=== PATIENT | female | born 1980 | race Caucasian/White ===

== ENCOUNTER → 2017-03-03 08:56 | Outpatient (CLI) | payer MEDICAID ==
[2017-03-03 09:54] LABS: ALBUMIN 3.3 g/dL (3.4-5.0); BILIRUBIN - DIRECT 0.06 mg/dL (0.00-0.30); BILIRUBIN - INDIRECT 0.33 mg/dL (0.00-1.00); BILIRUBIN - TOTAL 0.39 mg/dL (0.2-1.3); PROTEIN - SERUM 6.7 g/dL (6.4-8.2)
== END | disposition home or self-care (01) ==
LOC: D.LAB 02-22 08:00 → D.US 02-22 09:00
PROVIDERS: Internal Medicine Gastroenterology
DX: K76.0 Fatty (change of) liver, not elsewhere classified (principal)

== ENCOUNTER → 2017-07-18 08:43 | Outpatient (CLI) | payer MEDICAID | END | disposition home or self-care (01) | LOC: D.MRI 08:43 | DX: I63.9 Cerebral infarction, unspecified (principal); G43.409 Hemiplegic migraine, not intractable, without status migrainosus; G43.009 Migraine without aura, not intractable, without status migrainosus ==

== ENCOUNTER → 2018-04-17 09:15 | Outpatient (CLI) | payer MEDICAID ==
[~2018-04-17 09:15] MED LIST: BUTALB-APAP-CA1 EACH PO; CARAFATE1 G PO; CATAPRES0.1 MG PO; CELEXA20 MG PO; DEPAKOTE250 MG PO; DUEXIS 800-26.1 EACH PO; INDERAL10 MG PO; NO MED LIST; PEPCID AC20 MG PO; PHENERGAN25 MG RC; PROAIR HFA8.5 GM; PROAIR HFA8.5 GM INH; PROTONIX40 MG PO; ROBAXIN500 MG PO; TORADOL10 MG PO; TYLENOL W/CODEI1 TAB PO; XANAX1 MG PO; ZOFRAN4 MG PO
== END | disposition home or self-care (01) ==
LOC: D.MRI 09:15
DX: M54.5 Low back pain (principal)

== ENCOUNTER 2018-06-12 16:06 | Emergency (ER) | payer MEDICAID ==
[~2018-06-12] VITALS: Ht 165.1 cm; Wt 111.4 kg
[2018-06-12 16:10] VITALS: Ht 165.1 cm; Wt 111.4 kg
[2018-06-12] MEDS ORDERED: NO MED LIST (16:11)
[2018-06-12] MEDS ORDERED: PHENERGAN25 MG RC (16:15)
[2018-06-12] MEDS ORDERED: DUEXIS 800-26.1 EACH PO (16:16)
[2018-06-12] MEDS ORDERED: ROBAXIN500 MG PO (16:16)
[2018-06-12] MEDS ORDERED: TORADOL10 MG PO (16:17)
[2018-06-12] MEDS ORDERED: CARAFATE1 G PO ×2 (16:17→19:13)
[2018-06-12] MEDS ORDERED: CELEXA20 MG PO (16:17)
[2018-06-12] MEDS ORDERED: XANAX1 MG PO (16:17)
[2018-06-12] MEDS ORDERED: PROAIR HFA8.5 GM INH (16:17)
[2018-06-12] MEDS ORDERED: PEPCID AC20 MG PO (16:19)
[2018-06-12] MEDS ORDERED: CATAPRES0.1 MG PO (16:19)
[2018-06-12] MEDS ORDERED: BUTALB-APAP-CA1 EACH PO (16:19)
[2018-06-12] MEDS ORDERED: TYLENOL W/CODEI1 TAB PO (16:19)
[2018-06-12] MEDS ORDERED: INDERAL10 MG PO (16:20)
[2018-06-12] MEDS ORDERED: PROTONIX40 MG PO ×2 (16:20→19:13)
[2018-06-12] MEDS ORDERED: PROAIR HFA8.5 GM (16:21)
[2018-06-12] MEDS ORDERED: DEPAKOTE250 MG PO (16:21)
[2018-06-12 16:50] LABS: BASOPHILS 0.2 % (0-2); EOSINOPHILS 1.8 % (0-7); HEMATOCRIT 43.2 % (36.0-48.0); HEMOGLOBIN 14.6 g/dL (12-16); IMMATURE GRANULOCYTES 0.4 % (0-5); LYMPHOCYTES 30.8 % (15-50); MCH 30.9 pg (26.0-34.0); MCHC 33.8 g/dL (31.0-37.0); MCV 91.3 fL (80.0-100.0); MEAN PLATELET VOLUME 11.7 fL (7.4-10.4); MONOCYTES 6.4 % (2-11); NEUTROPHILS 60.4 % (40-80); PLATELET COUNT 215 10x3/uL (130-400); RBC 4.73 10x6/uL (4.00-5.40); RDW 13.3 % (11.5-14.5); WBC 11.2 10x3/uL (4.8-10.8)
[2018-06-12 17:02] LABS: APPEARANCE HAZY (CLEAR); BILIRUBIN NEGATIVE (NEGATIVE); COLOR DK YELLOW (YELLOW); GLUCOSE NEGATIVE (NEGATIVE); KETONE NEGATIVE (NEGATIVE); NITRITE NEGATIVE (NEGATIVE); PROTEIN NEGATIVE (NEGATIVE); SPECIFIC GRAVITY 1.025 (1.005-1.020); UROBILINOGEN NORMAL (NORMAL)
[2018-06-12 17:04] LABS: BACTERIA MODERATE /hpf (NONE SEEN); MUCUS >1+ /lpf (NONE SEEN); RED CELLS - URINE 0-5 /hpf (0-5); WHITE CELLS - URINE 0-5 /hpf (0-5)
[2018-06-12 17:05] LABS: ALBUMIN 3.3 g/dL (3.4-5.0); ALKALINE PHOSPHATASE 70 U/L (46-116); ALT (SGPT) 14 U/L (10-68); BILIRUBIN - TOTAL 0.38 mg/dL (0.2-1.3); CALC OSMOLALITY 269 mosm/kg (275-300); CALCIUM 8.5 mg/dL (8.5-10.1); CARBON DIOXIDE 26.6 mmol/L (21.0-32.0); CHLORIDE - SERUM 102 mmol/L (98-107); CREATININE - SERUM 0.7 mg/dL (0.6-1.3); GLUCOSE 94 mg/dL (74-106); POTASSIUM - SERUM 3.7 mmol/L (3.5-5.1); PROTEIN - SERUM 6.7 g/dL (6.4-8.2); SODIUM 136 mmol/L (136-145); UREA NITROGEN 7 mg/dL (7-18); eGFR NON AFRICAN AMERICAN > 90 mL/min (90-120)
[2018-06-12 17:42] LABS: AMYLASE - SERUM 55 U/L (25-115); LIPASE 107 U/L (73-393)
[2018-06-12] MEDS ORDERED: ZOFRAN4 MG PO (19:13)
[2018-06-12 19:35] VITALS: BP 128/77
== END 2018-06-12 19:36 | disposition home or self-care (01) ==
LOC: D.ER 16:06
PROVIDERS: Family Medicine
DX: R10.9 Unspecified abdominal pain (principal); K92.1 Melena; K29.70 Gastritis, unspecified, without bleeding; R19.7 Diarrhea, unspecified; R31.9 Hematuria, unspecified; I10 Essential (primary) hypertension; K21.9 Gastro-esophageal reflux disease without esophagitis; Z85.42 Personal history of malignant neoplasm of other parts of uterus

== ENCOUNTER → 2018-06-22 07:11 | Outpatient (CLI) | payer MEDICAID ==
[2018-06-12 16:10] VITALS: BMI 40.8
== END | disposition home or self-care (01) ==
LOC: D.MRI 07:11
DX: E27.8 Other specified disorders of adrenal gland (principal)

== ENCOUNTER 2019-06-23 18:13 | Emergency (ER) | payer MEDICAID ==
[~2019-06-23] VITALS: Ht 165.1 cm; Wt 112.0 kg
[2019-06-23 18:23] VITALS: Ht 165.1 cm; Wt 112.0 kg
[2019-06-23 19:08] LABS: BASOPHILS 0.1 % (0-2); EOSINOPHILS 3.3 % (0-7); HEMATOCRIT 43.6 % (36.0-48.0); IMMATURE GRANULOCYTES 0.5 % (0-5); LYMPHOCYTES 24.3 % (15-50); MCHC 34.4 g/dL (31.0-37.0); MCV 90.1 fL (80.0-100.0); MONOCYTES 6.9 % (2-11); NEUTROPHILS 64.9 % (40-80); PLATELET COUNT 245 10x3/uL (130-400); RBC 4.84 10x6/uL (4.00-5.40); RDW 13.7 % (11.5-14.5)
[2019-06-23 19:11] LABS: APPEARANCE CLEAR (CLEAR); BILIRUBIN NEGATIVE (NEGATIVE); COLOR YELLOW (YELLOW); GLUCOSE NEGATIVE (NEGATIVE); KETONE NEGATIVE (NEGATIVE); NITRITE NEGATIVE (NEGATIVE); PROTEIN NEGATIVE (NEGATIVE); SPECIFIC GRAVITY 1.015 (1.005-1.020); UROBILINOGEN NORMAL (NORMAL)
[2019-06-23 19:13] LABS: BACTERIA FEW /hpf (NONE SEEN); RED CELLS - URINE 0-5 /hpf (0-5); WHITE CELLS - URINE 0-5 /hpf (0-5)
[2019-06-23 19:21] LABS: ALBUMIN 3.4 g/dL (3.4-5.0); ALKALINE PHOSPHATASE 63 U/L (46-116); ALT (SGPT) 14 U/L (10-68); BILIRUBIN - TOTAL 0.29 mg/dL (0.2-1.3); CALC OSMOLALITY 276 mosm/kg (275-300); CALCIUM 9.7 mg/dL (8.5-10.1); CARBON DIOXIDE 27.3 mmol/L (21.0-32.0); CHLORIDE - SERUM 104 mmol/L (98-107); CREATININE - SERUM 0.8 mg/dL (0.6-1.3); GLUCOSE 97 mg/dL (74-106); POTASSIUM - SERUM 3.9 mmol/L (3.5-5.1); PROTEIN - SERUM 6.9 g/dL (6.4-8.2); SODIUM 139 mmol/L (136-145); UREA NITROGEN 10 mg/dL (7-18); eGFR NON AFRICAN AMERICAN 85 mL/min (90-120)
[2019-06-23] MEDS ORDERED: CIPRO500 MG PO (22:34)
[2019-06-23] MEDS ORDERED: PHENERGAN25 M1 PO (22:34)
[2019-06-23] MEDS ORDERED: ULTRAM50 MG PO (22:34)
[2019-06-24 00:10] VITALS: BP 120/76
== END 2019-06-24 00:10 | disposition home or self-care (01) ==
LOC: D.ER 18:13
PROVIDERS: Emergency Medicine
DX: N23 Unspecified renal colic (principal); R31.9 Hematuria, unspecified; R10.9 Unspecified abdominal pain

== ENCOUNTER 2019-11-11 14:33 | Emergency (ER) | payer MEDICAID ==
[~2019-11-11] VITALS: Ht 165.1 cm; Wt 113.6 kg
[~2019-11-11 14:33] MED LIST changes: +CIPRO500 MG PO; +PHENERGAN25 M1 PO; +ULTRAM50 MG PO
[2019-11-11 14:34] VITALS: BP 129/69; Ht 165.1 cm; Wt 113.6 kg
[2019-11-11] MEDS ORDERED: PEPCID AC20 MG PO (14:36)
[2019-11-11] MEDS ORDERED: TORADOL10 MG PO (15:50)
[2019-11-11 16:24] LABS: APPEARANCE CLEAR (CLEAR); BILIRUBIN NEGATIVE (NEGATIVE); COLOR YELLOW (YELLOW); GLUCOSE NEGATIVE (NEGATIVE); KETONE NEGATIVE (NEGATIVE); NITRITE NEGATIVE (NEGATIVE); PROTEIN NEGATIVE (NEGATIVE); UROBILINOGEN NORMAL (NORMAL)
== END 2019-11-11 16:45 | disposition home or self-care (01) ==
LOC: D.ER 14:33
PROVIDERS: Emergency Medicine
DX: R20.0 Anesthesia of skin (principal); M51.36 Other intervertebral disc degeneration, lumbar region; Z86.73 Personal history of transient ischemic attack (TIA), and cerebral infarction without residual deficits; Z72.0 Tobacco use; I10 Essential (primary) hypertension; J45.909 Unspecified asthma, uncomplicated; W19.XXXA Unspecified fall, initial encounter; Y93.9 Activity, unspecified; Y92.9 Unspecified place or not applicable

== ENCOUNTER → 2019-11-12 12:27 | Outpatient (CLI) | payer MEDICAID ==
[2019-11-11 14:34] VITALS: BMI 41.6
== END | disposition home or self-care (01) ==
LOC: D.MRI 12:27
PROVIDERS: ATTEND Neurological Surgery
DX: M54.12 Radiculopathy, cervical region (principal)

== ENCOUNTER 2020-04-06 15:06 | Emergency (ER) | payer MEDICAID ==
[~2020-04-06] VITALS: Ht 165.1 cm; Wt 121.8 kg
[2020-04-06 15:35] LABS: BASOPHILS 0.3 % (0-2); EOSINOPHILS 3.5 % (0-7); HEMATOCRIT 41.5 % (36.0-48.0); HEMOGLOBIN 13.4 g/dL (12-16); IMMATURE GRANULOCYTES 0.8 % (0-5); LYMPHOCYTES 38.7 % (15-50); MCH 30.3 pg (26.0-34.0); MCHC 32.3 g/dL (31.0-37.0); MCV 93.9 fL (80.0-100.0); MEAN PLATELET VOLUME 10.7 fL (7.4-10.4); MONOCYTES 7.4 % (2-11); NEUTROPHILS 49.3 % (40-80); PLATELET COUNT 280 10x3/uL (130-400); RBC 4.42 10x6/uL (4.00-5.40); RDW 14.6 % (11.5-14.5); WBC 7.7 10x3/uL (4.8-10.8)
[2020-04-06 15:38] VITALS: Ht 165.1 cm; Wt 121.8 kg
[2020-04-06] MEDS ORDERED: WATER PILL? (15:42)
[2020-04-06 15:47] LABS: CALC OSMOLALITY 276 mosm/kg (275-300); CHLORIDE - SERUM 104 mmol/L (98-107); CREATININE - SERUM 0.8 mg/dL (0.6-1.3); GLUCOSE 98 mg/dL (74-106); POTASSIUM - SERUM 4.2 mmol/L (3.5-5.1); SODIUM 139 mmol/L (136-145); UREA NITROGEN 11 mg/dL (7-18); eGFR NON AFRICAN AMERICAN 85 mL/min (90-120)
[2020-04-06 15:57] LABS: ALBUMIN 2.9 g/dL (3.4-5.0); ALKALINE PHOSPHATASE 78 U/L (30-120); ALT (SGPT) 26 U/L (10-68); PROTEIN - SERUM 6.6 g/dL (6.4-8.2)
[2020-04-06 17:11] VITALS: BP 115/86
== END 2020-04-06 17:12 | disposition home or self-care (01) ==
LOC: D.ER 15:06
PROVIDERS: Family Medicine
DX: R22.42 Localized swelling, mass and lump, left lower limb (principal); M79.662 Pain in left lower leg

== ENCOUNTER 2020-04-21 19:00 | Outpatient (CLI) | payer BC ==
[2020-04-06 15:38] VITALS: BMI 44.6
[~2020-04-21 19:00] MED LIST changes: +WATER PILL?
== END 2020-04-21 23:59 | disposition home or self-care (01) ==
LOC: D.MAMMO 19:00
PROVIDERS: ATTEND Nurse Practitioner Family
DX: N63.0 Unspecified lump in unspecified breast (principal)

== ENCOUNTER 2020-08-08 21:43 | Inpatient (IN) | payer MEDICAID ==
[~2020-08-08] VITALS: Ht 165.1 cm; Wt 127.3 kg
[~2020-08-08 21:43] MED LIST changes: +ALBUTEROL INH; -INDERAL10 MG PO; -PROAIR HFA8.5 GM; +PROPRANOLOL HCL20 MG PO; +[UNRECOGNIZED DRUG - OTHER] INH
[2020-08-08 22:04] LABS: BASOPHILS 0.3 % (0-2); EOSINOPHILS 2.3 % (0-7); HEMATOCRIT 42.6 % (36.0-48.0); HEMOGLOBIN 13.8 g/dL (12-16); IMMATURE GRANULOCYTES 0.8 % (0-5); LYMPHOCYTES 35.7 % (15-50); MCH 30.3 pg (26.0-34.0); MCHC 32.4 g/dL (31.0-37.0); MCV 93.4 fL (80.0-100.0); MEAN PLATELET VOLUME 11.2 fL (7.4-10.4); MONOCYTES 4.9 % (2-11); PLATELET COUNT 304 10x3/uL (130-400); RBC 4.56 10x6/uL (4.00-5.40); RDW 14.6 % (11.5-14.5); WBC 13.7 10x3/uL (4.8-10.8)
[2020-08-08 22:08] LABS: CALC OSMOLALITY 284 mosm/kg (275-300); CALCIUM 9.4 mg/dL (8.5-10.1); CARBON DIOXIDE 38.7 mmol/L (21.0-32.0); CHLORIDE - SERUM 104 mmol/L (98-107); CREATININE - SERUM 0.9 mg/dL (0.6-1.3); GLUCOSE 108 mg/dL (74-106); POTASSIUM - SERUM 3.5 mmol/L (3.5-5.1); SODIUM 143 mmol/L (136-145); UREA NITROGEN 9 mg/dL (7-18); eGFR NON AFRICAN AMERICAN 74 mL/min (90-120)
[2020-08-08 22:10] LABS: APTT 22.8 SECONDS (22.8-39.4); INR 0.91 (0.85-1.17); PROTIME 12.3 SECONDS (11.6-15.0)
[2020-08-08 22:26] LABS: ALBUMIN 3.1 g/dL (3.4-5.0); ALKALINE PHOSPHATASE 83 U/L (30-120); ALT (SGPT) 24 U/L (10-68); CKMB 0.8 U/L (0.0-3.6); CREATINE KINASE 67 UL (21-215); PRO BNP 247 pg/mL (0-125); PROTEIN - SERUM 6.9 g/dL (6.4-8.2)
[2020-08-08 22:27] LABS: BILIRUBIN NEGATIVE (NEGATIVE); KETONE NEGATIVE (NEGATIVE); NITRITE NEGATIVE (NEGATIVE); UROBILINOGEN NORMAL mg/dL (< 2)
[2020-08-08 22:29] LABS: TROPONIN-I < 0.017 ng/mL (0.000-0.060)
[2020-08-08 22:37] LABS: HCG URINE NEGATIVE (NEGATIVE)
--- NOTE | 2020-08-08 23:55 | NUR ---
ADMIT TO ROOM 2127 FROM ER. ALERT/ORIENTED/AMBULATORY. VERY TALKATIVE. ADMISSION HISTORY AND ASSESSMENT INITIATED. HOME MEDS REVIEWED/UPDATED. PLAN OF CARE INITIATED. CALL LIGHT IN REACH. SAFETY PRECAUTIONS REVIEWED.
[2020-08-09] MEDS ORDERED: NEURONTIN 300300 MG PO (00:09)
[2020-08-09] MEDS ORDERED: TRIAMTERENE-HC1 EAC6 PO (00:19)
[2020-08-09] MEDS ORDERED: FUROSEMIDE40 MG PO (00:33)
[2020-08-09] MEDS ORDERED: K-DUR20 MEQ PO (00:34)
[2020-08-09] MEDS ORDERED: BREO ELLIPTA 21 EACH (00:36)
[2020-08-09 00:38] VITALS: BP 110/80; Ht 165.1 cm; Wt 127.3 kg
[2020-08-09 02:39] LABS: BASOPHILS 0.2 % (0-2); EOSINOPHILS 0.5 % (0-7); HEMATOCRIT 42.8 % (36.0-48.0); HEMOGLOBIN 13.7 g/dL (12-16); LYMPHOCYTES 17.4 % (15-50); MCH 29.9 pg (26.0-34.0); MCV 93.4 fL (80.0-100.0); MONOCYTES 1.3 % (2-11); NEUTROPHILS 79.6 % (40-80); PLATELET COUNT 301 10x3/uL (130-400); RBC 4.58 10x6/uL (4.00-5.40); RDW 14.6 % (11.5-14.5); WBC 12.8 10x3/uL (4.8-10.8)
[2020-08-09 02:48] LABS: APTT 25.5 SECONDS (22.8-39.4); INR 0.88 (0.85-1.17)
[2020-08-09 02:52] LABS: ALBUMIN 2.9 g/dL (3.4-5.0); ANION GAP 11.2 mmol/L (8-16); BILIRUBIN - TOTAL 0.06 mg/dL (0.2-1.3); CALCIUM 8.7 mg/dL (8.5-10.1); CARBON DIOXIDE 29.1 mmol/L (21.0-32.0); CREATININE - SERUM 1.2 mg/dL (0.6-1.3); POTASSIUM - SERUM 3.3 mmol/L (3.5-5.1); PROTEIN - SERUM 6.8 g/dL (6.4-8.2)
--- NOTE | 2020-08-09 03:35 | NUR ---
SPOKE WITH MURPHY RODRIGUEZ ABOUT LACTIC ACID 5.4, WAS TOLD TO MAKE SURE BLOOD CULTURES WERE DONE, ARE FLUIDS RUNNING, WAS GIVEN ORDER FOR ZOFRAN AND ORDER EP
--- NOTE | 2020-08-09 07:00 | NUR ---
RECEIVED REPORT. ASSUMED CARE OF PATIENT. CALL LIGHT WITHIN REACH. PATIENT ALERT/ORIENTED, SITTING UP IN BED. PATIENT PROVIDED INCENTIVE SPIROMETRY AT THIS TIME WITH RETURN DEMONSTRATION VIA PATIENT. IV FLUIDS INFUSING ORDERED. DENIES NEEDS AT THIS TIME. NO DISTRESS.
[2020-08-09 08:49] VITALS: BP 134/69
--- NOTE | 2020-08-09 10:22 | NUR ---
MEDICATED FOR NAUSEA AT THIS TIME. NO DISTRESS.
[2020-08-09 13:34] VITALS: BP 123/74
--- NOTE | 2020-08-09 16:52 | NUR ---
SCDs TO BILATERAL LOWER EXTREMITIES PLACED AT THIS TIME.
[2020-08-09 18:56] VITALS: BP 137/66
--- NOTE | 2020-08-09 19:30 | NUR ---
RECEIVED REPORT, WILL ASSUME CARE OF PT, IV-LFA-SL, DENIES ANY NEEDS AT THIS TIME, BED IS LOW, SRX2, CALL LIGHT IN REACH, WILL CONTINUE PLAN OF CARE
[2020-08-10 03:54] VITALS: BP 111/63
[2020-08-10 07:15] LABS: HEMATOCRIT 41.4 % (36.0-48.0); HEMOGLOBIN 13.2 g/dL (12-16); MCH 29.6 pg (26.0-34.0); MCHC 31.9 g/dL (31.0-37.0); MCV 92.8 fL (80.0-100.0); MEAN PLATELET VOLUME 11.4 fL (7.4-10.4); PLATELET COUNT 339 10x3/uL (130-400); RBC 4.46 10x6/uL (4.00-5.40); RDW 14.6 % (11.5-14.5); WBC 20.8 10x3/uL (4.8-10.8)
[2020-08-10 07:17] VITALS: BP 108/63
[2020-08-10 07:17] LABS: CALC OSMOLALITY 278 mosm/kg (275-300); CARBON DIOXIDE 29.7 mmol/L (21.0-32.0); CHLORIDE - SERUM 102 mmol/L (98-107); CREATININE - SERUM 0.8 mg/dL (0.6-1.3); GLUCOSE 123 mg/dL (74-106); POTASSIUM - SERUM 4.2 mmol/L (3.5-5.1); SODIUM 139 mmol/L (136-145); UREA NITROGEN 12 mg/dL (7-18); eGFR NON AFRICAN AMERICAN 85 mL/min (90-120)
--- NOTE | 2020-08-10 07:30 | NUR ---
PT SITTING UP IN BED WATCHING TV. ALERT AND ORIENTED. O2 AT 3L VIA NC. PT STATES SHE HAS NO FURHTER NEEDS AT THIS TIME. BED LOW. CL IN REACH. WILL CONTINUE WITH POC.
[2020-08-10 08:02] VITALS: BP 105/57
[2020-08-10 10:40] LABS: LYMPHOCYTES 12 % (15-50); MONOCYTES 8 % (2-11); NEUTROPHILS 79 % (40-80)
[2020-08-10 10:41] LABS: PLATELET ESTIMATE NORMAL; ROULEAUX OCC
[2020-08-10 11:19] VITALS: BP 120/71
--- NOTE | 2020-08-10 16:00 | NUR ---
PT STATES SHE VOMITED AND FEELS NAUSEAS. GAVE IV ZOFRAN. WILL CONTINUE TO MONITOR.
[2020-08-10 16:29] VITALS: BP 98/56
[2020-08-10 20:00] VITALS: BP 102/62
--- NOTE | 2020-08-10 20:01 | NUR ---
RECEIVED REPORT, WILL ASSUME CARE OF PT, TALKING ON PHONE, DENIES ANY NEEDS AT THIS TIME, BED IS LOW, SRX2, CALL LIGHT IN REACH, WILL CONTINUE PLAN OF CARE
[2020-08-11] VITALS: BP 127/61
[2020-08-11 04:00] VITALS: BP 117/65
[2020-08-11 07:00] VITALS: BP 111/69
[2020-08-11 07:06] LABS: BASOPHILS 0.1 % (0-2); EOSINOPHILS 0.7 % (0-7); HEMATOCRIT 40.9 % (36.0-48.0); IMMATURE GRANULOCYTES 1.9 % (0-5); LYMPHOCYTES 22.6 % (15-50); MCH 29.5 pg (26.0-34.0); MCHC 31.8 g/dL (31.0-37.0); MCV 92.7 fL (80.0-100.0); MEAN PLATELET VOLUME 11.2 fL (7.4-10.4); MONOCYTES 5.7 % (2-11); PLATELET COUNT 342 10x3/uL (130-400); RBC 4.41 10x6/uL (4.00-5.40); RDW 14.7 % (11.5-14.5); WBC 20.1 10x3/uL (4.8-10.8)
[2020-08-11 07:16] LABS: ANION GAP 10.1 mmol/L (8-16); CALCIUM 8.8 mg/dL (8.5-10.1); CARBON DIOXIDE 30.7 mmol/L (21.0-32.0); CREATININE - SERUM 0.9 mg/dL (0.6-1.3); POTASSIUM - SERUM 3.8 mmol/L (3.5-5.1)
--- NOTE | 2020-08-11 09:20 | NUR ---
PT STATES SHE HAS VOMITED SEVERAL TIMES THIS AM. IV ZOFRAN GIVEN. WILL CONTINUE TO MONITOR.
--- NOTE | 2020-08-11 10:25 | NUR ---
CALLED LAB AND ASKED IF THEY HAVE COVID TEST RESULTS BACK YET AND THEY STATED THEY HAVE NOT RECEIVED IT YET BUT THEY WILL CALL THE LAB THAT DOES THE TESTING AND SEE IF THEY DID NOT SEND THE RESULTS OR IF THEY HAVE THEM. I VERBALIZED UNDERSTANDING.
[2020-08-11 11:00] VITALS: BP 113/70
--- NOTE | 2020-08-11 14:03 | NUR ---
SPOKE WITH DR. MADERA THAT PT STATES SHE VOMITED THIS AM. HE STATES HE KNOWS AND HE IS CHANGING HER MEDS. I VERBALIZED UNDERSTANDING.
--- NOTE | 2020-08-11 14:38 | NUR ---
I have reviewed this patient and I concur with the Shift Assessment completed by the Licensed Practical Nurse today this shift.
--- NOTE | 2020-08-11 14:55 | NUR ---
PT AWAKE ALERT AND ORIENTED. SITTING UP IN BED TALKING ON THE TELEPHONE. PT STATES SHE IS FEELING A LITTLE BETTER THAN THIS AM BUT IS WANTING ZOFRAN FOR NAUSEA. IV ZOFRAN GIVEN. PT STATES SHE HAS NO FURTHER NEEDS AT THIS TIME. BED LOW. CL IN REACH.
[2020-08-11 15:00] VITALS: BP 109/73
--- NOTE | 2020-08-11 15:11 | NUR ---
SPOKE WITH LAB ABOUT COVID TEST SINCE THEY NEVER CALLED ME BACK AND THEY STATED THAT THEY SENT HER TEST TO [facility] AND NOT [facility] AND THE [facility] TESTS CAN TAKE 48-72HR'S TO COME BACK AND PT'S TEST SHOULD BE BACK BE TONIGHT OR TOMORROW AFTERNOON, BUT THEY WILL CALL [facility] AND CHECK ON IT AND CALL ME BACK IF THEY HAVE THE RESULTS. I VERBALIZED UNDERSTANDING.
--- NOTE | 2020-08-11 15:56 | NUR ---
SPOKE WITH MAURICE HARRINGTON ABOUT PT'S COUGH SHE STATES TO ORDER TESSALON PERLE. I VERBALIZED UNDERSTANDING.
[2020-08-11 20:00] VITALS: BP 109/66
--- NOTE | 2020-08-11 20:10 | NUR ---
REPORT RECIEVED AND ROUNDING COMPLETE. PATIENT LAYING IN BED ON LEFT SIDE, EYES CLOSED BREATHING EVEN AND UNLABORED. PATIENT REFUSES TO WAKE UP, MUMBLES AT NURSES AND THEN STOPPED RESPONDING ALL TOGEHTER. NO DISTRESS NOTED. CALL LIGHT WITHIN REACH AND BED IN LOWEST LOCKED POSITION.
[2020-08-12] VITALS: BP 125/70
[2020-08-12 04:00] VITALS: BP 115/64
[2020-08-12 07:11] LABS: BASOPHILS 0.2 % (0-2); EOSINOPHILS 0 % (0-7); HEMATOCRIT 43.6 % (36.0-48.0); HEMOGLOBIN 14.1 g/dL (12-16); IMMATURE GRANULOCYTES 2.9 % (0-5); LYMPHOCYTES 26.3 % (15-50); MCH 30.2 pg (26.0-34.0); MCHC 32.3 g/dL (31.0-37.0); MCV 93.4 fL (80.0-100.0); MEAN PLATELET VOLUME 10.9 fL (7.4-10.4); MONOCYTES 7.4 % (2-11); NEUTROPHILS 63.2 % (40-80); PLATELET COUNT 333 10x3/uL (130-400); RBC 4.67 10x6/uL (4.00-5.40); RDW 14.7 % (11.5-14.5); WBC 17.2 10x3/uL (4.8-10.8)
[2020-08-12 07:25] LABS: CALC OSMOLALITY 280 mosm/kg (275-300); CALCIUM 8.6 mg/dL (8.5-10.1); CARBON DIOXIDE 36.2 mmol/L (21.0-32.0); CHLORIDE - SERUM 102 mmol/L (98-107); CREATININE - SERUM 0.8 mg/dL (0.6-1.3); GLUCOSE 108 mg/dL (74-106); MAGNESIUM - SERUM 2.2 mg/dL (1.8-2.4); POTASSIUM - SERUM 3.8 mmol/L (3.5-5.1); SODIUM 141 mmol/L (136-145); eGFR NON AFRICAN AMERICAN 85 mL/min (90-120)
[2020-08-12 07:26] LABS: UREA NITROGEN 11 mg/dL (7-18)
[2020-08-12] MEDS ORDERED: SINGULAIR10 MG PO (14:22)
[2020-08-12] MEDS ORDERED: ZITHROMAX500 MG PO (14:24)
[2020-08-12] MEDS ORDERED: PREDNISONE10 MG PO (15:09)
--- NOTE | 2020-08-12 17:35 | NUR ---
PT DISCHARGE INSTRUCTIONS REVIEWED AND SIGNED. SHE CALLED PHARMACY TO VERIFY MEDS CALLED IN. IV REMOVED.
== END 2020-08-12 17:37 | disposition home or self-care (01) | DRG 203 ==
LOC: D.ER 21:43 → D.M2 23:21
PROVIDERS: Family Medicine; ADMIT Family Medicine; ATTEND Family Medicine
DX: J40 Bronchitis, not specified as acute or chronic (principal); R00.0 Tachycardia, unspecified; Z86.73 Personal history of transient ischemic attack (TIA), and cerebral infarction without residual deficits; Z72.0 Tobacco use

== ENCOUNTER 2021-02-18 10:20 | Emergency (ER) | payer BC ==
[~2021-02-18] VITALS: Ht 165.1 cm; Wt 131.8 kg
[~2021-02-18 10:20] MED LIST changes: +ALDACTONE100 MG PO; +BREO ELLIPTA 21 EACH; +FUROSEMIDE40 MG PO; +K-DUR20 MEQ PO; +LASIX20 MG PO; +MEDROL DOSE PACK4 MG PO; +MUCINEX DM ER1 EAC1 PO; +NEURONTIN 300300 MG PO; +PREDNISONE10 MG PO; +SINGULAIR10 MG PO; +TRIAMTERENE-HC1 EAC6 PO; +VIBRAMYCIN 100100 MG PO; +ZITHROMAX500 MG PO
[2021-02-18 10:34] VITALS: Ht 165.1 cm; Wt 131.8 kg
[2021-02-18 11:22] LABS: BASOPHILS 0.2 % (0-2); EOSINOPHILS 1.8 % (0-7); HEMATOCRIT 43.3 % (36.0-48.0); HEMOGLOBIN 13.9 g/dL (12-16); IMMATURE GRANULOCYTES 0.6 % (0-5); LYMPHOCYTE ABS# 2.51 10x3/uL (1.18-3.74); LYMPHOCYTES 22.3 % (15-50); MCH 30.6 pg (26.0-34.0); MCHC 32.1 g/dL (31.0-37.0); MCV 95.4 fL (80.0-100.0); MEAN PLATELET VOLUME 11.5 fL (7.4-10.4); MONOCYTES 6.7 % (2-11); NEUTROPHILS 68.4 % (40-80); PLATELET COUNT 241 10x3/uL (130-400); RBC 4.54 10x6/uL (4.00-5.40); RDW 14.8 % (11.5-14.5); WBC 11.3 10x3/uL (4.8-10.8)
[2021-02-18 11:26] LABS: HCG SERUM NEGATIVE (NEGATIVE)
[2021-02-18 11:29] LABS: CALC OSMOLALITY 276 mosm/kg (275-300); CARBON DIOXIDE 28.5 mmol/L (21.0-32.0); CHLORIDE - SERUM 101 mmol/L (98-107); CREATININE - SERUM 0.9 mg/dL (0.6-1.3); GLUCOSE 121 mg/dL (74-106); POTASSIUM - SERUM 4.1 mmol/L (3.5-5.1); SODIUM 138 mmol/L (136-145); UREA NITROGEN 13 mg/dL (7-18); eGFR NON AFRICAN AMERICAN 74 mL/min (90-120)
[2021-02-18 11:46] LABS: ALBUMIN 3.3 g/dL (3.4-5.0); ALKALINE PHOSPHATASE 78 U/L (30-120); ALT (SGPT) 22 U/L (10-68); AMYLASE - SERUM 53 U/L (25-115); BILIRUBIN - TOTAL 0.22 mg/dL (0.2-1.3); CKMB 0.3 U/L (0.0-3.6); CREATINE KINASE 45 UL (21-215); LIPASE 103 U/L (73-393); MAGNESIUM - SERUM 1.9 mg/dL (1.8-2.4); PRO BNP 18 pg/mL (0-125); PROTEIN - SERUM 6.8 g/dL (6.4-8.2); TROPONIN-I < 0.017 ng/mL (0.000-0.060)
[2021-02-18 12:42] LABS: UDS - AMPHET NEGATIVE QUAL (NEGATIVE); UDS - BARB POSITIVE QUAL (NEGATIVE); UDS - BENZO POSITIVE QUAL (NEGATIVE); UDS - COCAINE NEGATIVE QUAL (NEGATIVE); UDS - OPIATE NEGATIVE QUAL (NEGATIVE); UDS - PCP NEGATIVE QUAL (NEGATIVE); UDS - THC NEGATIVE QUAL (NEGATIVE)
[2021-02-18 12:45] LABS: BILIRUBIN NEGATIVE (NEGATIVE); KETONE NEGATIVE (NEGATIVE); NITRITE NEGATIVE (NEGATIVE); UROBILINOGEN NORMAL mg/dL (< 2)
[2021-02-18] MEDS ORDERED: PROMETHAZINE W473 ML PO (14:06)
[2021-02-18 15:18] VITALS: BP 127/79
== END 2021-02-18 15:15 | disposition home or self-care (01) ==
LOC: D.ER 10:20
PROVIDERS: Family Medicine
DX: R11.0 Nausea (principal); R53.1 Weakness; T50.B95A Adverse effect of other viral vaccines, initial encounter; Z86.73 Personal history of transient ischemic attack (TIA), and cerebral infarction without residual deficits; I10 Essential (primary) hypertension; Z72.0 Tobacco use